=== PATIENT | male | born 1945 | race Caucasian/White ===

== ENCOUNTER 2020-08-06 09:30 | Outpatient (RCR) | payer OTHER, SELFPAY ==
--- NOTE | 2020-07-22 14:21 | HP.PTEVAL ---
Patient's Visit Information ROHAN MCKEON is a 75 year old M referred to Physical Therapy by [facility] with a diagnosis of Myasthenia Gravis. Date of Evaluation: 07/18/20 Physical Therapist: Hayden Warner DPT - Visit Plan Frequency: 2x /Week Duration: 6 Weeks Plan: start with aquatic setting working on shoulder ROM and strengthening. Add in land for balance. Move to fully land once able to. - Subjective Pt. is here today for his initial evaluation with diagnosis of Myasthenia Gravis. Abhay has been having difficulty with his balance, coordination and with B shuolder pain. Pt. reports he is doing better recently after starting a new medications. 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 Pt. is having pain in B shoulders, worse in AMs, but no always. He has diffculty with reaching both UEs over head. He likes to walk his dog as well. Pt. is reports having 2 falls, both not recent after his dog pulled hard on the leash and pulled himi down. Rohan also reports diffuclty with getting up from the ground if he was to fall or get up from the floor. Pt. is hopeful to reduce his B shoulder pain, increased general strength and improve balance and and functional mobility. - Pain B shoulder Pain Intensity (Out of 10): 2 Pain Intensity Range: 0, 8 - Objective POSTURE: Pt. has rounded shoulders, FH and increased thoracic kyphosis. Pt. has good LORE in stance no lateral shifting or off balance noted. PALPATION: Pt. had mild tenderness to palpation of R anterior shoulder, but minmal it feels deeper.. NEURO: Pt. has normal sensation of BLEs to light and sharp touch. Pt. had 2+ DTR of BLE patella and achilles DTR. Pt. is able to rise on heels and toes without LOB or signs of myotomal weakness. ROM: LUMBAR SPINE: min loss throughout (no pain), thoracic spine- mod loss (no pain), cervical spine: mod loss throughout (no pain). AROM: R shoulder- flexion 110deg increase NW, abd 100deg increase NW, functional ER C4 aberrant motion noted, functional IR L1 increase NW. L shoulder: flexion 110deg increase NW, abd 100deg increase NW, functional ER C4 aberrant motion noted, functional IR L1 increase NW. MMT: R SHOULDER: flexion 4-/5 increase NW, abd 3+/5 increase NW, ext 4+/5, ER 4/5 NE, IR 4/5 NE. L shoulder- only pain with flexion and abd 4/5 throughout. FGA 16/30 - Goals Goal 1:: LTG: pt. to be I with HEP. Goal Time Frame: 4-6 Weeks Goal 2:: STG: Pt. to sleep throughout the night without increase in B shoulder pain. Goal Time Frame: 2-4 Weeks Goal 3:: LTG: Pt. to have increased FGA to 20/30 indicating reduced risk for future falls. Goal Time Frame: 4-6 Weeks Goal 4:: LTG: pt. to have increased B shoulder AROM by 25% without increase in symptoms. 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 Goal Time Frame: 4-6 Weeks - Rehabilitation Potential Physical Therapy Diagnosis: Pt. has signs and symptoms consistent with general weakness with myasthenia gravis as well as imbalance. He is complaining of increased B shoulder pain intermittent in severity, but constantly there. I would like him to work on general mobility in aquatic setting of shoulders and progress balance activities on land. He will progress to fully land once able. Rehabilitation Potential: Good - Anticipated Interventions Patient/Client Instruction: Educate patient on: Condition, Plan of Care, Risk Factors For the Purpose of:: To facilitate caregiver knowledge, To improve self management, To prevent re-injury, To improve ability to perform tasks related to life management, To improve tolerance to ADL's Therapeutic Exercise to Include: Strength training, Power training, Balance training, Body mechanics, Postural training, Flexibilty training, Gait and locomotor training, In an aquatic setting For the Purpose of:: To decrease pain, To decrease swelling/inflammation, To increase ROM, To improve nutrient delivery to tissue, To increase oxygenation perfusion, To improve muscle performance and motor function, To improve ability to perform ADL's Thank you for the opportunity to evaluate your patient. For Medicare and Medicare HMO plans, please review the plan of care and approve it. It will need to be FAXED BACK to us at [phone] for Medicare purposes. For Medicare only, by signing this I certify the plan of care. Please let me know if there are questions or concerns regarding this plan of care. Physician Signature: Date:
--- NOTE | 2020-08-07 12:03 | HP.PT.NRP ---
ROHAN MCKEON was seen in my office for initial evaluation on 07/18/20. The following Plan of Care was established for this patient: Initial Frequency: 2x /Week Initial Duration: 6 Weeks Patient/Client Instruction: Educate patient on: Condition, Plan of Care, Risk Factors For the Purpose of:: To facilitate caregiver knowledge, To improve self management, To prevent re-injury, To improve ability to perform tasks related to life management, To improve tolerance to ADL's Therapeutic Exercise to Include: Strength training, Power training, Balance training, Body mechanics, Postural training, Flexibilty training, Gait and locomotor training, In an aquatic setting For the Purpose of:: To decrease pain, To decrease swelling/inflammation, To increase ROM, To improve nutrient delivery to tissue, To increase oxygenation perfusion, To improve muscle performance and motor function, To improve ability to perform ADL's This patient was last seen in our office 08/06/20. Pertinent comments regarding their Physical therapy will appear below: Pt. called today to cancel all of his remaining appointments saying he is going to seek therapy else where. I talked to the aquatic STRATEGIC CLIENT EXECUTIVE this date who reports that he wanted to talk to me yesterday and was going to help him find me, but never came back after changing his clothes after aquatic therapy. I had also called him early this date to discuss his concerns as had had received a note that he wanted to work on getting up from the floor, but then received another note that he only wanted to do aquatic therapy. In returning my call he decided to just cancel all of his remianing appointments. I will DC him back to [facility] at this point in time. At this point I will be discontinuing this patient from physical therapy. I would be happy to see this patient again in the future if found appropriate by the physician. Thank you! Hayden Warner, HUIT
== END 2020-08-06 19:00 | disposition home or self-care (01) ==
LOC: PT 09:30
DX: G70.01 Myasthenia gravis with (acute) exacerbation (principal)
CPT/HCPCS: 97113; 97161; 97530